=== PATIENT | female | born 1955 | race Caucasian/White ===

== ENCOUNTER 2017-08-15 11:32 | Day surgery (SDC) | payer OTHER ==
--- NOTE | 2017-08-15 07:51 | HP ---
DATE OF SURGERY: 08/15/2017 ADMISSION DIAGNOSIS: At least one calcified gallstone. ANTICIPATED PROCEDURE: Cholecystectomy. HISTORY OF PRESENT ILLNESS: The patient has upper abdominal pain and discomfort. CT revealing stones. Presents for cholecystectomy. PAST MEDICAL HISTORY: ALLERGIES: CIPRO. MEDICATIONS: None. PAST SURGICAL HISTORY: Left breast prior needle placement. SOCIAL HISTORY: Negative. FAMILY HISTORY: Negative. REVIEW OF SYSTEMS: Negative. PHYSICAL EXAMINATION: VITAL SIGNS: Normal. CHEST: Clear. COR: Regular. ABDOMEN: No palpable organomegaly or mass. IMPRESSION: Symptomatic cholelithiasis. PLAN: Laparoscopic cholecystectomy.
[~2017-08-15 11:32] MED LIST: Lactated Ringers 1,000 ML IV ONE; Sensorcaine 0.25% 10 ML ONE
[2017-08-15] MEDS ORDERED: SUBLIMAZE 250 MCG/5 ML IV ONE (11:33)
[2017-08-15] MEDS ORDERED: Quelicin Fliptop 200 MG/10 ML IV ONE (11:33)
[2017-08-15] MEDS ORDERED: Versed 2 MG/2 ML Injection IV ONE (11:33)
[2017-08-15] MEDS ORDERED: DIPRIVAN 200 MG/20 ML IV ONE (11:33)
[2017-08-15] MEDS ORDERED: BRIDION 200MG/2ML IV ONE (11:33)
[2017-08-15] MEDS ORDERED: Zemuron 100 MG/10 ML IV ONE (11:33)
[2017-08-15] MEDS ORDERED: MEFOXIN 2 GM PREMIX** 2 GM/50 ML ML IV SCH (12:00)
[2017-08-15] MEDS ORDERED: Lactated Ringers 1,000 ML IV SCH (12:00)
[2017-08-15] MEDS ORDERED: SUBLIMAZE 100 MCG/2 ML ONE (16:05)
[2017-08-15 18:50] VITALS: O2SAT 97
[2017-08-15 18:52] VITALS: BP 124/68; PULSE 84
--- NOTE | 2017-08-16 07:40 | OP ---
SURGERY DATE/TIME: 08/15/2017 1512 PREOPERATIVE DIAGNOSIS: Symptomatic cholelithiasis. POSTOPERATIVE DIAGNOSIS: Symptomatic cholelithiasis. PROCEDURE: Laparoscopic cholecystectomy. SURGEON: Dr. Donnelly. ANESTHESIA: General endotracheal tube. COMPLICATIONS: None. CONDITION: Stable. INDICATIONS: A patient with upper abdominal pain. Ultrasound positive. Seen and examined. Procedure discussed in detail and wished to proceed. Taken to surgery. DESCRIPTION OF PROCEDURE AND FINDINGS: General anesthetic, routine prep and drape. Veress needle inserted. Opening pressure of 1, insufflating pressure 14. Four - 5's. Good visualization. Cystic duct defined. Cystic artery defined. Both structures triply clipped and transected. Clips noted to be across and well approximated. Gallbladder removed through the epigastric port with minimal widening. The field was totally dry. CO2 exsufflated. Skin closed with 4-0 Vicryl and Steri-Strips. The patient tolerated the procedure satisfactorily.
== END 2017-08-15 17:35 | disposition home or self-care (01) ==
LOC: SDC 11:32
PROVIDERS: ATTEND Surgery
PROC: 0FT44ZZ Resection of Gallbladder, Percutaneous Endoscopic Approach (ICD-10-PCS; principal; 2017-08-15)
DX: K80.20 Calculus of gallbladder without cholecystitis without obstruction (principal)
CPT/HCPCS: 00790; 36415; 82962; 88304; J0330; J0694; J2250; J2704; J3010

== ENCOUNTER 2017-10-21 22:55 | Observation (INO) | payer OTHER ==
[2017-10-21] MEDS ORDERED: DUONEB 0.5-3 MG/3 ml Neb IH ONE ×2 (23:31→23:33)
[2017-10-21] MEDS ORDERED: Sodium Chloride 0.9% 1000 ML 1,000 ML IV SCH (23:45)
[2017-10-21] MEDS ORDERED: PROVENTIL 2.5 MG/3 ML NEB IH ONE (23:56)
[2017-10-21] MEDS ORDERED: solu-MEDROL 125 MG IV ONE (23:56)
[2017-10-22] MEDS ORDERED: Sodium Chloride 0.9% 1000 ML 1,000 ML ONE (00:01)
[2017-10-22] MEDS ORDERED: solu-MEDROL 125 MG ONE (00:01)
[2017-10-22] MEDS ORDERED: Magnesium 1 Gm / 100 Ml D5W*** 200 ML IV ONE (00:01)
[2017-10-22] MEDS ORDERED: PROVENTIL 2.5 MG/3 ML NEB IH ONE (00:03)
--- NOTE | 2017-10-22 00:07 | ERPHSYRPT ---
- History of Present Illness Time Seen by Provider: 10/21/17 23:47 Source: patient, family Patient Subjective Stated Complaint: increasing cough since 2129; attempted breathing tx at home and noted it to have worsened. Triage Nursing Assessment: cough, non-productive, Wheezes to right side Physician History: CC: short of air Hx: 62 y/o patient with hx of reactive airway disease. She uses prn nebs at home. She had acute allergic reaction to shellfish 2 weeks ago and was treated in [facility] with epi pen and is still on steroids. 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 No fever or chills. No V/D. No itching, tongue or lip swelling. No vomiting or diarrhea. No skin rash or redness. She took pepcid and benadryl PERSONAL COMPUTER SPECIALIST. She took two nebs which seemed to make her cough worse so she came to ER. No chest pain. Severity of Dyspnea-Max: severe Severity of Dyspnea-Current: severe Allergies/Adverse Reactions: ciprofloxacin [From Cipro] Allergy (Verified 08/15/17 12:00) breathing clindamycin Allergy (Verified 08/15/17 12:00) Rash erythromycin base Allergy (Verified 10/22/17 02:22) gabapentin Allergy (Verified 10/22/17 02:23) Penicillins Allergy (Verified 10/22/17 02:22) shellfish derived Allergy (Verified 10/22/17 02:23) Home Medications: Albuterol 2.5 mg/3 ml Neb [Proventil 2.5 mg/3 ml Neb] 2.5 mg IH UD [History] Amlodipine Besylate 5 mg [Norvasc 5 mg] 5 mg PO DAILY 07/25/17 [History] Metformin HCl 1,000 mg PO BID 07/25/17 [History] Mometasone/Formoterol [Dulera 200 Mcg/5 Mcg Inhaler] 2 puff IH BID 07/25/17 [ History] Montelukast Sodium 10 mg [Singulair 10 MG] 10 mg PO DAILY 07/25/17 [History] PANTOPRAZOLE 40 mg Tablet [Protonix 40MG Tablet] 40 mg PO DAILY 07/25/17 [ History] Prednisone 5 mg [Deltasone 5 mg] 5 mg PO UD PRN 07/25/17 [History] Canagliflozin [Invokana] 1 tab PO DAILY 10/22/17 [History] Hx Tetanus, Diphtheria Vaccination/Date Given: Yes Hx Influenza Vaccination/Date Given: Yes Hx Pneumococcal Vaccination/Date Given: No Immunizations Up to Date: Yes - Review of Systems Constitutional: No Fever, No Chills Eyes: No Symptoms Ears, Nose, & Throat: No Mouth Swelling, No Throat Swelling Respiratory: Cough, Dyspnea, Wheezing Cardiac: No Chest Pain Abdominal/Gastrointestinal: No Abdominal Pain, No Nausea, No Vomiting, No Diarrhea Skin: No Pruritis, No Rash Neurological: No Headache All Other Systems: Reviewed and Negative - Past Medical History Pertinent Past Medical History: Yes Neurological History: No Pertinent History ENT History: No Pertinent History Cardiac History: Hypertension Respiratory History: Asthma Endocrine Medical History: Diabetes Type II Musculoskeletal History: No Pertinent History GI Medical History: Other History: No Pertinent History Psycho-Social History: No Pertinent History Female Reproductive Disorders: No Pertinent History Other Medical History: hiatal hernia - Past Surgical History Past Surgical History: Yes Neuro Surgical History: No Pertinent History Cardiac: No Pertinent History Respiratory: No Pertinent History Gastrointestinal: Appendectomy, Cholecystectomy Genitourinary: No Pertinent History Musculoskeletal: Orthopedic Surgery Female Surgical History: Tubal Ligation, Other Other Surgical History: "pomroy". sinus surgery. breast biopsy. trigger finger release - Social History Smoking Status: Never smoker Exposure to second hand smoke: No Drug Use: none - Female History Hx Now: No - Nursing Vital Signs Nursing Vital Signs: Initial Vital Signs Temperature 98.2 F 10/21/17 23:27 Pulse Rate 116 H 10/21/17 23:27 Respiratory Rate 24 10/21/17 23:27 Blood Pressure 138/88 10/21/17 23:27 O2 Sat by Pulse Oximetry 100 10/21/17 23:27 Pain Scale Pain Intensity 0 - Physical Exam General Appearance: alert, other (Coughing and wheezing on exam) Eye Exam: PERRL/EOMI Neck Exam: normal inspection, non-tender, supple Respiratory Exam: wheezing (diffuse), No respiratory distress Cardiovascular/Chest Exam: normal heart sounds, regular rate/rhythm Abdominal/Gastrointestinal Exam: soft, No tenderness, No distention Extremity Exam: non-tender, normal range of motion, no calf tenderness, no pedal edema Neurologic Exam: alert, oriented x 3, cooperative, sensation nml, No motor deficits Skin Exam: warm, dry, No rash SpO2 Interpretation: normal SpO2: 100 Oxygen Delivery: Room Air - Course Nursing assessment & vital signs reviewed: Yes EKG Interpreted by Me: RATE (105), Sinus Tach, NORMAL AXIS, NORMAL INTERVALS ( QTc 426), Other (Poor R wave progression) - Radiology Exams cxr X-ray Interpretation: Interpreted by me (No acute, ?left lung nodule) Ordered Tests: Active Orders 24 hr Category Date Time Status Belting Cutter STAT Care 10/21/17 23:56 Active EKG-ER Only STAT Care 10/21/17 23:56 Active IV Insertion STAT Care 10/21/17 23:56 Active Pulse Oximetry (ED) STAT Care 10/21/17 23:56 Active CHEST 1 VIEW (PORTABLE) Stat Exams 10/21/17 23:56 Taken Lactic Acid Stat Lab 10/21/17 23:56 Completed Lactic Acid Stat Lab 10/22/17 02:24 Completed VENOUS BLOOD GAS Stat Lab 10/21/17 23:56 Completed Peak Expiratory Flow Rate ONCE RT 10/22/17 01:49 Completed Respiratory Nebulizer STAT RT 10/21/17 23:32 Completed Respiratory Nebulizer STAT RT 10/21/17 23:57 Completed Respiratory Nebulizer STAT RT 10/22/17 02:38 Completed Medication Summary Generic Name Dose Route Start Last Admin Trade Name Freq PRN Reason Stop Dose Admin Magnesium Sulfate/Dextrose 100 mls @ 100 mls/hr 10/21/17 23:45 10/22/17 02:13 Magnesium 1 Gm / 100 Ml D5w IV 10/22/17 01:44 100 mls/hr Q1H ROSE MARIE Administration Sodium Chloride 1,000 mls @ 100 mls/hr 10/21/17 23:45 10/22/17 00:11 Sodium Chloride 0.9% 1000 Ml IV 11/20/17 23:44 100 mls/hr .Q10H ROSE MARIE Administration Discontinued Medications Generic Name Dose Route Start Last Admin Trade Name Freq PRN Reason Stop Dose Admin Albuterol Sulfate 2.5 mg 10/21/17 23:56 10/22/17 00:17 Proventil 2.5 Mg/3 Ml Neb IH 10/21/17 23:57 2.5 mg STAT ONE Administration Albuterol Sulfate Confirm 10/22/17 00:03 Proventil 2.5 Mg/3 Ml Neb Administered 10/22/17 00:04 Dose 2.5 mg IH .STK-MED ONE Albuterol/Ipratropium 3 ml 10/21/17 23:31 10/21/17 23:37 Duoneb 0.5-3 Mg/3 Ml Neb IH 10/21/17 23:32 3 ml STAT ONE Administration Albuterol/Ipratropium Confirm 10/21/17 23:33 Duoneb 0.5-3 Mg/3 Ml Neb Administered 10/21/17 23:34 Dose 3 ml IH .STK-MED ONE Albuterol/Ipratropium 3 ml 10/22/17 02:38 10/22/17 02:54 Duoneb 0.5-3 Mg/3 Ml Neb IH 10/22/17 02:39 3 ml STAT ONE Administration Albuterol/Ipratropium Confirm 10/22/17 02:54 Duoneb 0.5-3 Mg/3 Ml Neb Administered 10/22/17 02:55 Dose 3 ml IH .STK-MED ONE Diphenhydramine HCl 25 mg 10/22/17 02:38 10/22/17 02:41 Benadryl 50 Mg/Ml IV 10/22/17 02:39 25 mg STAT ONE Administration Diphenhydramine HCl Confirm 10/22/17 02:40 Benadryl 50 Mg/Ml Administered 10/22/17 02:41 Dose 50 mg .ROUTE .STK-MED ONE Methylprednisolone Sodium Succinate 125 mg 10/21/17 23:56 10/22/17 00:12 Solu-Medrol 125 Mg IV 10/21/17 23:57 125 mg STAT ONE Administration Methylprednisolone Sodium Succinate Confirm 10/22/17 00:01 Solu-Medrol 125 Mg Administered 10/22/17 00:02 Dose 125 mg .ROUTE .STK-MED ONE Potassium Bicarbonate 50 meq 10/22/17 01:53 10/22/17 02:13 K-Lyte 25 Meq PO 10/22/17 01:54 50 meq STAT ONE Administration Potassium Bicarbonate Confirm 10/22/17 02:12 K-Lyte 25 Meq Administered 10/22/17 02:13 Dose 50 meq .ROUTE .STK-MED ONE Lab/Rad Data: Laboratory Result Diagrams 10/21/17 00:11 10/21/17 00:11 Laboratory Results 10/22/17 10/22/17 10/21/17 Range/Units 02:24 00:08 00:11 WBC (4.0-10.5) K/mm3 RBC (4.1-5.4) M/mm3 Hgb (12.0-16.0) gm/dl Hct (35-47) % MCV (78-100) fl MCH (26-32) pg MCHC (32-36) g/dl RDW (11.5-14.0) % Plt Count (150-450) K/mm3 MPV (6-9.5) fl Segmented Neutrophils (36.0-66.0) % Band Neutrophils (0.0-2.0) % Lymphocytes (Manual) (24-44) % Monocytes (Manual) (0.0-12.0) % Eosinophils (Manual) (0.00-3.0) % Differential Comment Platelet Estimate (NORMAL) VBG pH 7.45 H (7.32-7.42) VBG pCO2 at Pat Temp 34 L (42-55) mm/Hg VBG pO2 at Pat Temp 23 L (25-40) mm/Hg VBG HCO3 23.6 (22-28) meq/L VBG O2 Sat (Arley) 48.3 L (95-100) VBG Base Excess 0.0 (-2.0-2.0) VBG Hemoglobin 12.0 VBG Carboxyhemoglobin 2.3 (0.0-6.9) % T HGB POC Potassium 3.0 L* (3.5-5.1) Sodium 139 (136-145) mEq/L Potassium 3.0 L* (3.5-5.1) mEq/L Chloride 102 (98-107) mEq/L Carbon Dioxide 22.7 (21-32) mEq/L Anion Gap 18.3 H (5-15) MEQ/L BUN 13 (9-20) mg/dL Creatinine 0.73 (0.55-1.30) mg/dl Estimated GFR > 60 ML/MIN Glucose 133 H (70-110) MG/DL Lactic Acid 0.9 2.1 H (0.4-2.0) Calcium 9.5 (8.5-10.1) mg/dL Magnesium 2.0 (1.8-2.4) mg/dL Total Bilirubin 0.20 (0.2-1.0) mg/dL AST 11 L (15-37) U/L ALT 13 (12-78) U/L Alkaline Phosphatase 90 (46-116) U/L Serum Total Protein 7.6 (6.4-8.2) gm/dL Albumin 3.3 L (3.4-5.0) g/dL 10/21/17 Range/Units 00:11 WBC 15.6 H (4.0-10.5) K/mm3 RBC 4.18 (4.1-5.4) M/mm3 Hgb 10.6 L (12.0-16.0) gm/dl Hct 33.6 L (35-47) % MCV 80.4 (78-100) fl MCH 25.3 L (26-32) pg MCHC 31.5 L (32-36) g/dl RDW 15.4 H (11.5-14.0) % Plt Count 433 (150-450) K/mm3 MPV 9.9 H (6-9.5) fl Segmented Neutrophils 75 H (36.0-66.0) % Band Neutrophils 4 H (0.0-2.0) % Lymphocytes (Manual) 13 L (24-44) % Monocytes (Manual) 7 (0.0-12.0) % Eosinophils (Manual) 1 (0.00-3.0) % Differential Comment NORMAL Platelet Estimate NORMAL (NORMAL) VBG pH (7.32-7.42) VBG pCO2 at Pat Temp (42-55) mm/Hg VBG pO2 at Pat Temp (25-40) mm/Hg VBG HCO3 (22-28) meq/L VBG O2 Sat (Arley) (95-100) VBG Base Excess (-2.0-2.0) VBG Hemoglobin VBG Carboxyhemoglobin (0.0-6.9) % T HGB POC Potassium (3.5-5.1) Sodium (136-145) mEq/L Potassium (3.5-5.1) mEq/L Chloride (98-107) mEq/L Carbon Dioxide (21-32) mEq/L Anion Gap (5-15) MEQ/L BUN (9-20) mg/dL Creatinine (0.55-1.30) mg/dl Estimated GFR ML/MIN Glucose (70-110) MG/DL Lactic Acid (0.4-2.0) Calcium (8.5-10.1) mg/dL Magnesium (1.8-2.4) mg/dL Total Bilirubin (0.2-1.0) mg/dL AST (15-37) U/L ALT (12-78) U/L Alkaline Phosphatase (46-116) U/L Serum Total Protein (6.4-8.2) gm/dL Albumin (3.4-5.0) g/dL - Progress Progress Note: 10/22/17 00:46 Cough and wheezing improving. She ambulated to BR. No rash. 10/22/17 03:07 No sign of pneumonia on cxr. Advised pt possible left lung nodule needs follow up to confirm with radiology. She has PEFR 300. Coughing intermittently. No other systemic signs to suggest anaphylaxis. She agrees for observation. Likely needs to see investigator vice. Called Dr Swapna Puckett (oc) for Dr Lopez and will place in obs. Counseled pt/family regarding: lab results, diagnosis, need for follow-up, rad results - Departure Time of Disposition: 03:09 Departure Disposition: Observation Clinical Impression: Status asthmaticus Qualifiers: Asthma severity: mild Asthma persistence: intermittent Qualified Code(s): J45.22 - Mild intermittent asthma with status asthmaticus Condition: Fair Critical Care Time: No Referrals: MIGUEL LOPEZ [Primary Care Provider] -
[2017-10-22] MEDS: Magnesium 1 Gm / 100 Ml D5W*** 100 ML IV SCH ×2 (00:11→02:13)
[2017-10-22 00:14] LABS: Lactic Acid 2.1 (0.4-2.0); VBG CARBOXYHEMOGLOBIN 2.3 % T HGB (0.0-6.9); VBG HCO3- 23.6 meq/L (22-28); VBG O2 SATURATION 48.3 (95-100); VBG pH 7.45 (7.32-7.42)
[2017-10-22 00:17] LABS: Mean Cell Volume 80.4 fl (78-100); Mean Platelet Volume 9.9 fl (6-9.5); Platelet Count 433 K/mm3 (150-450); Red Blood Count 4.18 M/mm3 (4.1-5.4); Red Cell Distribution Width 15.4 % (11.5-14.0); White Blood Count 15.6 K/mm3 (4.0-10.5)
[2017-10-22 00:41] LABS: Mean Corpuscular Hemoglobin 25.3 pg (26-32)
[2017-10-22 00:46] LABS: ALBUMIN 3.3 g/dL (3.4-5.0); ALKALINE PHOSPHATASE 90 U/L (46-116); ANION GAP 18.3 MEQ/L (5-15); BLOOD UREA NITROGEN 13 mg/dL (9-20); CHLORIDE 102 mEq/L (98-107); Carbon Dioxide 22.7 mEq/L (21-32); Glucose 133 MG/DL (70-110); SGOT/AST 11 U/L (15-37); SGPT/ALT 13 U/L (12-78); SODIUM 139 mEq/L (136-145); Total Protein 7.6 gm/dL (6.4-8.2)
[2017-10-22] MEDS ORDERED: K-LYTE 25 MEQ PO ONE (01:53)
[2017-10-22 02:11] LABS: BAND 4 % (0.0-2.0); Eosinophil 1 % (0.00-3.0); Platelet Estimate NORMAL (NORMAL); Total Cells Counted 100
[2017-10-22] MEDS ORDERED: K-LYTE 25 MEQ ONE (02:12)
[2017-10-22] MEDS ORDERED: DUONEB 0.5-3 MG/3 ml Neb IH ONE ×2 (02:38→02:54)
[2017-10-22] MEDS ORDERED: BENADRYL 50 MG/ML IV ONE (02:38)
[2017-10-22] MEDS ORDERED: BENADRYL 50 MG/ML ONE (02:40)
[2017-10-22] MEDS ORDERED: PROVENTIL 2.5 MG/3 ML NEB IH PRN (03:16)
[2017-10-22] MEDS ORDERED: BENADRYL 50 MG/ML IV PRN (03:16)
[2017-10-22] MEDS ORDERED: NovoLOG Insulin SQ PRN (03:16)
[2017-10-22] MEDS ORDERED: SODIUM CHLORIDE 0.45% W/ 20 mEq KCL 1,000 ML IV SCH (03:16)
[2017-10-22] MEDS ORDERED: TYLENOL 325 MG PO PRN (03:16)
[2017-10-22] MEDS ORDERED: solu-MEDROL 125 MG IV SCH ×2 (03:30→12:00)
[2017-10-22] MEDS: DUONEB 0.5-3 MG/3 ml Neb IH SCH ×2 (07:05→11:20)
--- NOTE | 2017-10-22 08:28 | PCM.HP ---
History of Present Illness - Chief Complaint Chief Complaint: asthma Date: 10/22/17 History of Present Illness: is a 62 year old female. who was treated 2 weeks ago after allergic reaction to shellfish and 1 week ago became ill with cough congetion nausea some diarrhea a fever to 101. this was slowly improving until yesterday she started coughing and was unable to stop it was making it hard to breath. The nebs were seeming to make it worse. She lost her voice a few days ago but it is starting to come back yeserday. She was on a steroid taper and just decreased from 30 mg daily to 20 mg daily yesterday. She still has the dry nonproductive cough but is a little improved. She has no worsening wheezing or sob. She has no nausea or vomiting. - Review of Systems Constitutional: No Fever, No Chills Eyes: No Symptoms Ears, Nose, & Throat: No Symptoms Respiratory: Cough, Short Of Breath, Wheezing Cardiac: No Chest Pain, No Edema, No Syncope Abdominal/Gastrointestinal: No Abdominal Pain, No Nausea, No Vomiting, No Diarrhea Genitourinary Symptoms: No Dysuria Musculoskeletal: No Back Pain, No Neck Pain Skin: No Rash Neurological: No Dizziness, No Focal Weakness, No Sensory Changes Psychological: No Symptoms Endocrine: No Symptoms Hematologic/Lymphatic: No Symptoms Immunological/Allergic: No Symptoms Medications & Allergies Home Medications: Home Medication List Amlodipine Besylate 5 mg [Norvasc 5 mg] 5 mg PO HS 07/25/17 [History Confirmed 10/22/17] Metformin HCl 1,000 mg PO BID 07/25/17 [History Confirmed 10/22/17] Mometasone/Formoterol [Dulera 200 Mcg/5 Mcg Inhaler] 2 puff IH BID 07/25/17 [ History Confirmed 10/22/17] Montelukast Sodium 10 mg [Singulair 10 MG] 10 mg PO HS 07/25/17 [History Confirmed 10/22/17] PANTOPRAZOLE 40 mg Tablet [Protonix 40MG Tablet] 40 mg PO HS 07/25/17 [ History Confirmed 10/22/17] Albuterol 2.5 mg/3 ml Neb [Proventil 2.5 mg/3 ml Neb] 2.5 mg IH Q4H PRN # 50 neb 12/26/17 [Rx] Canagliflozin [Invokana] 1 tab PO DAILY 10/22/17 [History Confirmed 10/22/17] Diphenhydramine HCl 25 mg PO Q6HPRN PRN 10/22/17 [History Confirmed 10/22/17] Epinephrine 0.3 mg IJ UD PRN 10/22/17 [History Confirmed 10/22/17] Famotidine [Pepcid] 20 mg PO DAILY PRN PRN 10/22/17 [History Confirmed 10/22/17] Fluconazole [Diflucan] 100 mg PO DAILY PRN PRN 10/22/17 [History Confirmed 10/22] Fluticasone Furoate [Flonase Sensimist] 15.8 ml NS DAILY 10/22/17 [History Confirmed 10/22/17] Halobetasol Propionate 15 gm TP DAILY PRN 10/22/17 [History Confirmed 10/22/17] Prednisone 10 mg [Deltasone 10 mg] 20 mg PO DAILY #13 tablet 10/22/17 [Rx] Allergies/Adverse Reactions: Allergies Allergy/AdvReac Type Severity Reaction Status Date / Time ciprofloxacin [From Cipro] Allergy breathing Verified 08/15/17 12:00 clindamycin Allergy Rash Verified 08/15/17 12:00 erythromycin base Allergy Verified 10/22/17 02:22 gabapentin Allergy Verified 10/22/17 02:23 Penicillins Allergy Verified 10/22/17 04:06 shellfish derived Allergy Verified 10/22/17 02:23 - Past Medical History Past Medical History: Yes Neurological History: No Pertinent History ENT History: No Pertinent History Cardiac History: Hypertension Respiratory History: Asthma Endocrine Medical History: Diabetes Type II Musculoskelatal History: No Pertinent History GI Medical History: Other History: No Pertinent History Pyscho-Social History: No Pertinent History Reproductive Disorders: No Pertinent History Comment: hiatal hernia, h pylori - Female History Are you now?: No - Past Surgical History Past Surgical History: Yes Neuro Surgical History: No Pertinent History Cardiac History: No Pertinent History Respiratory Surgery: No Pertinent History GI Surgical History: Appendectomy, Cholecystectomy Genitourinary Surgical Hx: No Pertinent History Musculskeletal Surgical Hx: Orthopedic Surgery Female Surgical History: Tubal Ligation, Other Other Surgical History: "pomroy". sinus surgery. breast biopsy. trigger finger release - Social History Smoking Status: Never smoker Exposure to second hand smoke: No Alcohol: None Drug Use: none - Physical Exam Vital Signs: Vital Signs - 24 hr Temp Pulse Resp BP Pulse Ox 10/22/17 07:25 98.4 F 91 H 16 117/58 94 L 10/22/17 04:11 98.6 F 101 H 18 110/57 96 10/22/17 03:16 101 H 18 96 10/22/17 03:09 100 10/22/17 03:04 106 H 22 10/22/17 02:46 107 H 16 156/97 96 10/22/17 02:10 110 H 15 97 10/22/17 01:50 120 H 24 156/97 98 10/22/17 00:51 79 18 122/70 95 10/22/17 00:20 104 H 18 99 10/22/17 00:17 94 L 10/21/17 23:55 114 H 24 130/68 100 10/21/17 23:39 114 H 25 H 100 10/21/17 23:27 98.2 F 116 H 24 138/88 100 General Appearance: no apparent distress, alert Neurologic Exam: alert, oriented x 3, cooperative, normal mood/affect, nml cerebellar function, nml station & gait, sensation nml, No motor deficits Eye Exam: PERRL/EOMI, eyes nml inspection Ears, Nose, Throat Exam: normal ENT inspection, TMs normal, pharynx normal, moist mucous membranes Neck Exam: normal inspection, non-tender, supple, full range of motion Respiratory Exam: normal breath sounds, lungs clear, No respiratory distress Cardiovascular Exam: regular rate/rhythm, normal heart sounds, normal peripheral pulses Gastrointestinal/Abdomen Exam: soft, normal bowel sounds, No tenderness, No mass Back Exam: normal inspection, normal range of motion, No CVA tenderness, No vertebral tenderness Extremity Exam: normal inspection, normal range of motion, pelvis stable Skin Exam: normal color, warm, dry, No rash Lymphatic Exam: No adenopathy Results - Labs Lab/Micro Results: Accuchecks Date 10/22/17 Time 07:00 Accucheck Value: 220 Accuchecks Date 10/22/17 Time 07:00 Accucheck Value: 220 - Other Procedures and Tests Respiratory Therapy 10/22/17 06:14 Respiratory Nebulizer Q4H Assessment/Plan (1) Asthma exacerbation Current Visit: Yes Status: Acute Assessment & Plan: her wheezing is improved she has not needed any supplemental oxygen her cough persists and has likely been precipitated by upper respiratory infection we will extend her steroid taper she will continue the albuterol at home return if new or worsening symptoms will d/c home today Code(s): J45.901 - UNSPECIFIED ASTHMA WITH (ACUTE) EXACERBATION (2) Type 2 diabetes mellitus Current Visit: Yes Status: Chronic
--- NOTE | 2017-10-22 08:47 | XRAY ---
Indication: Cough and short of breath. Comparison: None Portable chest clear with a few incidental calcified granulomas. Heart is not enlarged. Bony thorax intact with mild osteopenia, degenerative changes, and old left rib fractures. Impression: Nonacute chest with chronic features.
[2017-10-22] MEDS ORDERED: Pepcid 20 MG PO PRN (08:58)
[2017-10-22] MEDS ORDERED: BENADRYL 25 MG CAPSULE PO PRN (08:58)
[2017-10-22] MEDS ORDERED: Advair Hfa 230/21 Mcg COMMON CANISTER IH SCH (09:00)
[2017-10-22] MEDS ORDERED: Glucophage 500 MG PO SCH (09:00)
[2017-10-22] MEDS ORDERED: Singulair 10 MG PO SCH ×2 (10:00→22:00)
[2017-10-22] MEDS ORDERED: NON-FORMULARY ITEM (Metformin Hcl [Metformin Hcl] 1,000 MG) PO SCH (10:00)
[2017-10-22] MEDS ORDERED: NORVASC 5 MG PO SCH ×2 (10:00→22:00)
[2017-10-22] MEDS ORDERED: Pepcid 20 MG VIAL IV SCH (10:00)
[2017-10-22] MEDS ORDERED: CANAGLIFLOZIN PO SCH (10:00)
[2017-10-22] MEDS ORDERED: Protonix 40MG Tablet PO SCH ×2 (10:00→22:00)
[2017-10-22] MEDS ORDERED: MEDICATION INTERVENTION MC SCH (10:00)
[2017-10-22] MEDS ORDERED: NON-FORMULARY ITEM (Mometasone/Formoterol [Dulera 200 Mcg/5 Mcg Inhaler] 2 PUFF) IH SCH (10:00)
[2017-10-22 11:12] VITALS: BP 110/54; O2SAT 96
[2017-10-22 11:28] VITALS: PULSE 74
--- NOTE | 2017-10-22 13:21 | PCM.DCORD ---
- Discharge Discharge Date: 10/22/17 Disposition: Home, Self-Care Condition: Stable Prescriptions: New Prednisone 10 mg [Deltasone 10 mg] 20 mg PO DAILY #13 tablet Continue Mometasone/Formoterol [Dulera 200 Mcg/5 Mcg Inhaler] 2 puff IH BID PANTOPRAZOLE 40 mg Tablet [Protonix 40MG Tablet] 40 mg PO HS Montelukast Sodium 10 mg [Singulair 10 MG] 10 mg PO HS Amlodipine Besylate 5 mg [Norvasc 5 mg] 5 mg PO HS Metformin HCl 1,000 mg PO BID Canagliflozin [Invokana] 1 tab PO DAILY Fluticasone Furoate [Flonase Sensimist] 15.8 ml NS DAILY Famotidine [Pepcid] 20 mg PO DAILY PRN PRN PRN Reason: Stomach Upset Fluconazole [Diflucan] 100 mg PO DAILY PRN PRN PRN Reason: Itching Epinephrine 0.3 mg IJ UD PRN PRN Reason: Allergies Diphenhydramine HCl 25 mg PO Q6HPRN PRN PRN Reason: Allergies Halobetasol Propionate 15 gm TP DAILY PRN PRN Reason: Redness/Irritation Changed Albuterol 2.5 mg/3 ml Neb [Proventil 2.5 mg/3 ml Neb] 2.5 mg IH Q4H PRN #50 neb PRN Reason: Shortness Of Breath Discontinued Prednisone 5 mg [Deltasone 5 mg] 10 mg PO DAILY PRN PRN PRN Reason: Shortness Of Breath Follow up with: MIGUEL RAMIREZ [Primary Care Provider] - 1 Week
== END 2017-10-22 14:05 | disposition home or self-care (01) ==
LOC: ED 22:55 → MED SURG 10-22 03:35
PROVIDERS: ADMIT Family Medicine; ATTEND Family Medicine
DX: J45.901 Unspecified asthma with (acute) exacerbation (principal); E11.9 Type 2 diabetes mellitus without complications
CPT/HCPCS: 36000; 36415; 71010; 80053; 82805; 82962; 83605; 83735; 85025; 93005; 93041; 93268; 94150; 94640; 94760; 96360; 96361; 96365; 96375; 99285; G0378; J1200; J2930; J3475; A9270-GY

== ENCOUNTER 2024-01-12 07:46 | Emergency (ER) | payer MEDICARE ==
[2024-01-12 08:14] VITALS: TEMP 97.5
[2024-01-12 08:29] LABS: Absolute Neutrophil Ct (ANC) 16.02 x10^3/uL (1.4-6.9); BASOPHIL % 0.4 % (0.0-0.4); Basophil (Absolute #) 0.07 x10^3/uL (0-0.4); Eosinophil % 0.9 % (0.00-5.0); Eosinophil (Absolute #) 0.17 x10^3/uL (0-0.5); Hematocrit 45.7 % (35-47); Hemoglobin 14.3 g/dL (12.0-16.0); IMMATURE GRAN # 0.07 x10^3u/L (0.00-0.03); IMMATURE GRAN % 0.4 % (0.00-0.4); Lymphocyte (Absolute #) 1.44 x10^3/uL (1.0-4.6); Lymphocytes % 7.5 % (24.0-44.0); Mean Cell Volume 92.7 fL (78-100); Mean Corpuscular Hgb Concent. 31.3 g/dL (32-36); Monocyte (Absolute #) 1.33 x10^3/uL (0.0-1.3); Neutrophil % 83.8 % (36.0-66.0); Platelet Count 267 x10^3/uL (150-450); Red Blood Count 4.93 x10^6/uL (4.1-5.4); Red Cell Distribution Width 13.1 % (11.5-14.0); White Blood Count 19.1 x10^3/uL (4.0-10.5)
[2024-01-12 08:40] LABS: Appearance Turbid (Clear); Bacteria Many /HPF (None Seen); Bilirubin Negative (Negative); Blood Large (Negative); Epithelial Cells None Seen /HPF (None Seen); Glucose, Urine >=1000 mg/dL (Negative); Hyaline Casts NONE SEEN /LPF (0-2); Ketones Negative (Negative); Leukocyte Esterase Moderate (Negative); Nitrite Positive (Negative); Protein,Urine Dip 100 (Negative); RBC >100 /HPF (0-5); WBC >100 /HPF (0-5)
[2024-01-12 08:41] LABS: ADD URINE CULTURE? YES (NO)
[2024-01-12 08:48] LABS: ALBUMIN 4.4 g/dL (3.5-5.0); ANION GAP 14.4 MEQ/L (5-15); BILIRUBIN,TOTAL 0.5 mg/dL (0.2-1.3); Calcium 9.2 mg/dL (8.4-10.2); Creatinine 1 0.53 mg/dL (0.52-1.04); EST GLOMERULAR FILTRATION RATE 99.4 ML/MIN; Potassium 3.8 mmol/L (3.5-5.1); Total Protein 7.4 g/dL (6.3-8.2)
[2024-01-12 09:22] VITALS: O2SAT 96
[2024-01-12] MEDS ORDERED: ROCEPHIN 2 Gm-D5w 50ML BAG** 2 G/50 ML IVPB IV ONE (09:32)
--- NOTE | 2024-01-12 09:35 | XRAY ---
CLINICAL HISTORY: flank pain/UTI TECHNIQUE: CT of the abdomen and pelvis was performed in axial plane with sagittal and coronal reconstructed images without intravenous contrast. One of the following dose reduction techniques was utilized for this exam: Automated exposure control, adjustment of the mA and/or kV according to patient size, and use of iterative reconstruction. COMPARISON: CT dated 08/29/2022. FINDINGS: Scanned lung bases are unremarkable. The liver is average in size. Diffuse parenchymal hypodensity is seen involving the anterior segments of the right lobe suggesting fatty infiltration and relatively sparing the rest segments. No intrahepatic or extrahepatic biliary radicle dilation. The gall bladder is not visualized (surgically removed). Unremarkable appearance of the adrenal glands and pancreas. Few tiny calcifications are seen in the spleen (redemonstrated). The kidneys appear unremarkable with no calculi, masses or hydronephrosis. A left renal upper pole cyst is seen measuring 3.4 x 3.4 cm (redemonstrated). Average caliber of both ureters with no definite evidence of calculi. The urinary bladder is partially filled showing mild perivesical fatty smudging and stranding. Few non-complicated colonic diverticula are seen. Otherwise, the large and small bowel loops are of average diameter with no evidence of obstruction. Appendix is not appreciated. No gross uterine lesions. Previous tubal ligation, for clinical correlation. No suspiciously enlarged retroperitoneal or mesenteric lymph nodes. No lytic or sclerotic lesions in the visualized spine. Atherosclerotic calcifications of the aorta. IMPRESSION: 1. Mild perivesical fatty stranding and smudging, picture could represent cystitis for clinical and laboratory correlation (this finding is new as compared to the earlier study). 2. No evidence of calculi along the urinary tract. 3. Fatty liver changes mostly involving the anterior segments of the right lobe and relatively sparing the rest, Dynamic MRI of the liver is recommended for further evaluation if clinically warranted. 4. Non-complicated colonic diverticulosis (redemonstrated)). 5. Tiny splenic granulomas (redemonstrated). 6. Left renal cyst (redemonstrated) Electronically Signed by: Sancho Araujo MD. (01/12/2024 09:30:59 EDT)
[2024-01-12] MEDS: ROCEPHIN 2 Gm-D5w 50ML BAG** 2 G/50 ML IVPB IV STA (09:49)
--- NOTE | 2024-01-12 11:22 | ERPHSYRPT ---
- History of Present Illness Time Seen by Provider: 01/12/24 07:48 Source: patient Exam Limitations: no limitations Patient Subjective Stated Complaint: Pt c/o of painful, frequent urination with some pain to the right flank Triage Nursing Assessment: Pt brought to the ER by her , hypertensive, rates pain as 8-9/10, urine is brown and cloudy, pulses normal, skin n/w/d, no difficuclty with breathing, doesn't appear to be in any distress Physician History: 68 years old female with a history of hypertension, hyperlipidemia, diabetes mellitus presented in the ER with complaint of dysuria started around 1 AM tod ay. Patient reports increased urinary frequency and sense of incomplete voiding. Reports mild right flank pain with no associated nausea or vomiting. Also noted discoloration/darkening of urine with no waqas hematuria. Denies any fever or chills. Reports having similar symptoms almost 3 weeks ago. Allergies/Adverse Reactions: ciprofloxacin [From Cipro] Allergy (Verified 01/12/24 08:16) breathing clindamycin Allergy (Verified 01/12/24 08:16) Rash erythromycin base Allergy (Verified 01/12/24 08:16) gabapentin Allergy (Verified 01/12/24 08:16) Penicillins Allergy (Verified 01/12/24 08:16) eye ointment only shellfish derived Allergy (Verified 01/12/24 08:16) Home Medications: PANTOPRAZOLE 40 mg Tablet [Protonix 40MG Tablet] 40 mg PO HS 07/25/17 [History] Acyclovir 400 mg PO BID 01/12/24 [History] Albuterol Sulfate [Proair Respiclick] 2 inh PO UD 01/12/24 [History] Aspirin 81 gm Chew [Baby Aspirin 81 mg Chew] 81 mg PO DAILY 01/12/24 [History] Empagliflozin [Jardiance] 25 mg PO DAILY 01/12/24 [History] Ezetimibe 10 mg [Zetia 10 MG] 10 mg PO DAILY 01/12/24 [History] Fluticasone/Vilanterol [Breo Ellipta 100-25 Mcg INH] 1 each IH DAILY 01/12/24 [History] Gabapentin [Neurontin ] 200 mg PO TID 01/12/24 [History] Glimepiride 2 mg [Amaryl 2 MG] 2 mg PO DAILY 01/12/24 [History] Mepolizumab [Nucala] 100 mg SQ UD 01/12/24 [History] Semaglutide [Ozempic] 0.25 mg SQ WEEKLY 01/12/24 [History] dilTIAZem HCL [Diltiazem 24Hr ER] 240 mg PO DAILY 01/12/24 [History] lisinopriL [Zestril] 2.5 mg PO DAILY 01/12/24 [History] Hx Tetanus, Diphtheria Vaccination/Date Given: Yes Hx Influenza Vaccination/Date Given: Yes Hx Pneumococcal Vaccination/Date Given: No Travel Risk - International Travel Have you traveled outside of the country in past 3 weeks: No - Coronavirus Screening Are you exhibiting any of the following symptoms?: No Close contact with a COVID-19 positive Pt in past 14-21 Days: No - Vaccine Status Have you recieved a Covid-19 vaccination: Yes [employer]etting [employer]: [email or web address] - Vaccination Dates Date of 2cond Vaccination (if applicable): 2020 - Review of Systems Constitutional: No Symptoms Eyes: No Symptoms Ears, Nose, & Throat: No Symptoms Respiratory: No Symptoms Cardiac: No Symptoms Abdominal/Gastrointestinal: Abdominal Pain Genitourinary Symptoms: Dysuria, Frequency, Flank Pain Musculoskeletal: No Symptoms Skin: No Symptoms Neurological: No Symptoms Psychological: No Symptoms Endocrine: No Symptoms Hematologic/Lymphatic: No Symptoms Immunological/Allergic: No Symptoms - Past Medical History Pertinent Past Medical History: Yes Neurological History: No Pertinent History ENT History: No Pertinent History Cardiac History: Hypertension Respiratory History: Asthma Endocrine Medical History: Diabetes Type II Musculoskeletal History: No Pertinent History GI Medical History: Other History: No Pertinent History Psycho-Social History: No Pertinent History Female Reproductive Disorders: No Pertinent History Other Medical History: hiatal hernia, h pylori - Past Surgical History Past Surgical History: Yes Neuro Surgical History: No Pertinent History Cardiac: No Pertinent History Respiratory: No Pertinent History Gastrointestinal: Appendectomy, Cholecystectomy Genitourinary: No Pertinent History Musculoskeletal: Orthopedic Surgery Female Surgical History: Tubal Ligation, Other Other Surgical History: "pomroy". sinus surgery. breast biopsy. trigger finger release - Social History Smoking Status: Never smoker Exposure to second hand smoke: No Drug Use: none Patient Lives Alone: No - Nursing Vital Signs Nursing Vital Signs: Initial Vital Signs Temperature 97.5 F 01/12/24 08:05 Pulse Rate 94 H 01/12/24 08:05 Blood Pressure 161/91 01/12/24 08:05 O2 Sat by Pulse Oximetry 97 01/12/24 08:05 Pain Scale Pain Intensity 8 - Physical Exam General Appearance: no apparent distress, alert Eye Exam: PERRL/EOMI Ears, Nose, Throat Exam: normal ENT inspection Neck Exam: normal inspection, non-tender, supple, full range of motion Respiratory Exam: normal breath sounds, lungs clear Cardiovascular Exam: regular rate/rhythm, normal heart sounds Gastrointestinal/Abdomen Exam: soft, normal bowel sounds, tenderness (Mild suprapubic) Back Exam: normal inspection, normal range of motion, No CVA tenderness Extremity Exam: normal inspection, normal range of motion, pelvis stable Neurologic Exam: alert, oriented x 3, cooperative, equipment monitor phototypesetting II-XII nml as tested Skin Exam: normal color SpO2 Interpretation: normal SpO2: 96 O2 Delivery: Room Air Ordered Tests: Active Orders 24 hr Category Date Time Status ABDOMEN AND PELVIS W/0 CONTRAS [CT] Stat Exams 01/12/24 08:25 Completed CBC W DIFF Stat Lab 01/12/24 08:15 Completed CMP Stat Lab 01/12/24 08:15 Completed CULTURE,URINE Stat Lab 01/12/24 08:16 Received UA W/RFX UR CULTURE Stat Lab 01/12/24 08:16 Completed Medication Summary Discontinued Medications Generic Name Dose Route Start Last Admin Trade Name Andreq PRN Reason Stop Dose Admin Ceftriaxone Sodium/Dextrose 2 g in 50 mls @ 100 mls/hr 01/12/24 09:22 01/12/24 11:10 Rocephin 2 Gm-D5w 50ml Bag IV 01/12/24 09:51 Infused STAT STA Infusion Ceftriaxone Sodium/Dextrose Confirm 01/12/24 09:32 Rocephin 2 Gm-D5w 50ml Bag Administered 01/12/24 09:33 Dose 2 g in 50 mls @ ud IV .STK-MED ONE Lab/Rad Data: Laboratory Result Diagrams 01/12/24 08:15 01/12/24 08:15 Laboratory Results 01/12/24 01/12/24 01/12/24 Range/Units 08:16 08:15 08:15 WBC 19.1 H (4.0-10.5) x10^3/uL RBC 4.93 (4.1-5.4) x10^6/uL Hgb 14.3 (12.0-16.0) g/dL Hct 45.7 (35-47) % MCV 92.7 (78-100) fL MCH 29.0 (26-32) pg MCHC 31.3 L (32-36) g/dL RDW 13.1 (11.5-14.0) % Plt Count 267 (150-450) x10^3/uL MPV 10.0 (7.5-11.0) fL Gran % 83.8 H (36.0-66.0) % Immature Gran % (Auto) 0.4 (0.00-0.4) % Nucleat RBC Rel Count 0.0 (0.00-0.1) % Eos # (Auto) 0.17 (0-0.5) x10^3/uL Immature Gran # (Auto) 0.07 H (0.00-0.03) x10^3u/L Absolute Lymphs (auto) 1.44 (1.0-4.6) x10^3/uL Absolute Monos (auto) 1.33 H (0.0-1.3) x10^3/uL Absolute Nucleated RBC 0.00 (0.00-0.01) x10^3u/L Lymphocytes % 7.5 L (24.0-44.0) % Monocytes % 7.0 (0.0-12.0) % Eosinophils % 0.9 (0.00-5.0) % Basophils % 0.4 (0.0-0.4) % Absolute Granulocytes 16.02 H (1.4-6.9) x10^3/uL Basophils # 0.07 (0-0.4) x10^3/uL Sodium 138 (135-145) mmol/L Potassium 3.8 (3.5-5.1) mmol/L Chloride 105 (98-107) mmol/L Carbon Dioxide 23 (22-30) mmol/L Anion Gap 14.4 (5-15) MEQ/L BUN 12 (7-17) mg/dL Creatinine 0.53 (0.52-1.04) mg/dL Estimated GFR 99.4 ML/MIN Glucose 183 H (74-106) mg/dL Calcium 9.2 (8.4-10.2) mg/dL Total Bilirubin 0.50 (0.2-1.3) mg/dL AST 37 H (14-36) U/L ALT 39 H (0-35) U/L Alkaline Phosphatase 111 (38-126) U/L Serum Total Protein 7.4 (6.3-8.2) g/dL Albumin 4.4 (3.5-5.0) g/dL Urine Color Eagle A (Yellow) Urine Appearance Turbid A (Clear) Urine pH 6.0 (4.6-8.0) Ur Specific Martha 1.020 (1.005-1.030) Urine Protein 100 A (Negative) Urine Glucose (UA) >=1000 A (Negative) mg/dL Urine Ketones Negative (Negative) Urine Blood Large A (Negative) Urine Nitrite Positive A (Negative) Urine Bilirubin Negative (Negative) Urine Urobilinogen 1.0 A (0.2) mg/dL Ur Leukocyte Esterase Moderate A (Negative) U Hyaline Cast (Auto) NONE SEEN (0-2) /LPF Urine Microscopic RBC >100 A (0-5) /HPF Urine Microscopic WBC >100 A (0-5) /HPF Ur Epithelial Cells None Seen (None Seen) /HPF Urine Bacteria Many A (None Seen) /HPF Urine Culture Reflexed YES (NO) - Progress Progress: improved, re-examined Air Movement: good Progress Note: 01/12/24 11:19 68 years old is evaluated for dysuria and increased frequency with discoloration of urine with no fever or chills. Had some mild flank pain but negative CVA tenderness. Workup showed white count of 19, fairly unremarkable chemistries except for mildly elevated transaminases. Does have UTI with positive nitrites/leukocyte esterase and multiple WBCs/RBCs in the urine. She is given a dose of Rocephin. CT abdomen pelvis without contrast is negative for stone, pyelonephritis, hydro ureteric nephrosis but did show some perivesical fat stranding/smudging suggestive of acute cystitis. I have discussed the results of workup with patient and family and offered observation admission but patient preferred to go home. I think it is reasonable. I would start her on cefpodoxime and recommended outpatient primary care follow-up in 1 to 2 days for reevaluation. She has no pain except during voiding. Recommended taking Tylenol/Azo's as needed for symptomatic relief. Discussed signs symptoms of worsening needing return to ER which she seems understanding. Stable for discharge. Blood Culture(s) Obtained: No Antibiotics given: Yes, No Counseled pt/family regarding: lab results, diagnosis, need for follow-up, rad results Medical Desision Making - Diagnostic Testing Diagnostic test were ordered, analyzed, and reviewed by me: Yes Radiological Interpretation: Reviewed by me, Teleradiologist Report - Risk of complications The pt has a mod risk of morbidity or mortality based on: Need for prescription drug management - Departure Departure Disposition: Home Clinical Impression: Acute cystitis Condition: Stable Critical Care Time: No Referrals: KASSIE RUANO DO [Primary Care Provider] - Follow up with PCP 1 day Instructions: Urinary Tract Infection, Adult (DC) Additional Instructions: Drink plenty of fluids. Take Tylenol/Azo's as needed for symptomatic relief. Follow-up with primary care for reevaluation in 1 to 2 days. Return to ER for worsening of symptoms like increasing pain, blood in the urine, flank pain or if develop nausea vomiting fever chills etc. Prescriptions: Phenazopyridine HCl 200 mg [Pyridium 200 mg] 200 mg PO TID #6 tablet Cefpodoxime Proxetil 200 mg [Vantin 200 mg] 200 mg PO BID 7 Days #14 tablet
[2024-01-12 11:25] VITALS: BP 146/73; PULSE 89
== END 2024-01-12 11:35 | disposition home or self-care (01) ==
LOC: ED 07:46
DX: N30.00 Acute cystitis without hematuria (principal); R30.0 Dysuria; R35.0 Frequency of micturition; R10.9 Unspecified abdominal pain; I10 Essential (primary) hypertension; E78.5 Hyperlipidemia, unspecified; E11.9 Type 2 diabetes mellitus without complications; Z79.84 Long term (current) use of oral hypoglycemic drugs; Z79.85 Long-term (current) use of injectable non-insulin antidiabetic drugs; Z79.899 Other long term (current) drug therapy
CPT/HCPCS: 36415; 74176; 80053; 81001; 85025; 87077; 87086; 87186; 96365; 99284; J0696